=== PATIENT | female | born 1975 | race Caucasian/White ===

== ENCOUNTER 2019-06-04 08:48 | Outpatient (CLI) | payer BC ==
--- NOTE | 2019-06-04 10:59 | ULT ---
LEFT BREAST ULTRASOUND LIMITED: Date: 06/04/2019 HISTORY: Follow-up diagnostic mammogram to evaluate breast densities in the left breast. FINDINGS: The largest density on mammogram was in approximately the 8 o'clock position of the left breast, fair ly deep within the breast. No definite mass or cyst seen in that exact location. In the 7 o'clock pos ition, 3.0 cm from the nipple, there is an approximately 0.2 x 0.4 x 0.4 cm hypoechoic nodular densit y, although I think this is too small to be the largest nodular density seen on the mammogram. Additi onally, at 6 o'clock, 7 cm from the nipple, there is a circumscribed hypoechoic oblong focus measurin g 0.2 x 0.3 x 0.5 cm. This also has a probable cystic appearance and certainly is benign by jacob loredo. IMPRESSION: BI-RADS Category 3 - Probably benign findings. 6 month follow-up left unilateral diagnostic mammogram and left breast ultrasound is recommended for further assessment. The small oval hypodensity seen at 6 o'clock and 7 o'clock have a benign appearance and probably are small cysts. The density at the 8 o'clock region on mammography is not definitely demonstrated on ultrasound. I think the density on ul trasound at 7 o'clock is somewhat small relative to the mammographic density size. Findings were discussed with the patient, who was in agreement with proceeding to 6 month follow-up s hort-term surveillance evaluation. POS: OFF
== END 2019-06-04 08:49 | disposition home or self-care (01) ==
LOC: BICMAMMO 08:48
PROVIDERS: ATTEND Obstetrics & Gynecology
DX: N63.20 Unspecified lump in the left breast, unspecified quadrant (principal)
CPT/HCPCS: G0279

== ENCOUNTER 2020-01-25 14:54 | Outpatient (CLI) | payer BC ==
--- NOTE | 2020-01-25 15:37 | MMO ---
Left Breast MAMMO Unilat Diag [facility]DI LT+LORAIEN. CLINICAL HISTORY: Patient is 44 years old and is seen for follow-up at short-interval from prior study. The patient has no family history of breast cancer. The patient has no personal history of cancer. The patient has a history of bilateral Breast reduction in 2003 - 5MO AFTER SX - PT STATES HER NIPPLE TISSUE -. VIEWS: The views performed were: left craniocaudal with tomosynthesis; left mediolateral oblique with tomosynthesis; and left mediolateral with tomosynthesis. FILMS COMPARED: The present examination has been compared to prior imaging studies performed at [facility] on 05/28/2019, and at [facility] on 06/04/2019 and 01/25/2020. This study has been interpreted with the assistance of computer-aided detection. MAMMOGRAM FINDINGS: There are scattered fibroglandular densities. Finding 1: There is a stable focal asymmetry measuring 4 millimeters seen in the left breast at 7 o'clock. Small cyst seen in this location by sonogram. Finding 2: Other additional scattered assymetries did not necessarily persists in the central left breast. Hypoechoic nodular density in the left breast 6:00 position, 7 cm from nipple on ultrasound is stable measuring 5 mm. This does not definitely have a mammographic correlate. IMPRESSION: FINDING 1: STABLE FOCAL ASYMMETRY IN THE LEFT BREAST IS BENIGN. FINDING 2: FINDING IN THE LEFT BREAST IS PROBABLY BENIGN. FOLLOW-UP IN 6 MONTHS IS RECOMMENDED. THE RESULTS OF THIS EXAM WERE SENT TO THE PATIENT. ACR BI-RADS Category 3 - Probably benign finding - short interval follow-up suggested. [facility] will notify the patient of the need for additional imaging services. MAMMOGRAPHY NOTE: 1. A negative mammogram report should not delay a biopsy if a dominant of clinically suspicious mass is present. 2. Approximately 10% to 15% of breast cancers are not detected by mammography. 3. Adenosis and dense breasts may obscure an underlying neoplasm. Reported by: SHIVANI EARL MD Electonically Signed: [id number]
--- NOTE | 2020-01-25 15:42 | ULT ---
EXAM: US Breast Limited Lt DATE: 01/25/2020 3:19 PM INDICATION: Follow-up diagnostic evaluation from May 2019 for densities of the left breast COMPARISON: Prior left breast diagnostic mammogram and ultrasound dated June 04, 2019. FINDING: The 5 x 2 x 4 mm hypoechoic solid nodule within the left breast 6:00 position 7 cm from the nipple is stable. This has no definite mammographic correlate. The hypoechoic nodule seen within the left breast 7:00 position 3 cm from the nipple is consistent wi th a simple cyst measuring 4 x 2 x 4 mm. IMPRESSION:BI-RADS Category 3-probably benign. The asymmetry seen within the left breast 7:00 positio n likely corresponds to the simple cyst seen the sonographic evaluation. The solid hypoechoic nodule in the left breast 6:00 position is stable and has no definite mammograph ic correlate. Follow-up left breast mammogram and sonogram is recommended to document stability. Patient was counseled on the findings currently the right center. BI-RADS 3 -- probably benign, 6-month follow-up
== END 2020-01-25 14:55 | disposition home or self-care (01) ==
LOC: BICMAMMO 14:54
PROVIDERS: ATTEND Obstetrics & Gynecology
DX: N63.14 Unspecified lump in the right breast, lower inner quadrant (principal); N64.89 Other specified disorders of breast
CPT/HCPCS: G0279